=== PATIENT | female | born 1945 | race Caucasian/White ===

== ENCOUNTER → 2017-09-27 | Outpatient (CLI) | payer MEDICARE ==
[2017-09-27 14:07] LABS: ABSOLUTE LYMPHOCYTES 1.7 thou/uL (0.8-5.3); ABSOLUTE MONOCYTES 0.2 thou/uL (0.0-1.2); ABSOLUTE NEUTROPHILS 3.5 thou/uL (1.6-8.1); BASOPHILS 0.3 %; EOSINOPHILS 0.9 %; HEMATOCRIT 33.2 % (37.0-47.0); HEMOGLOBIN 11.3 gm/dL (12.0-15.0); LYMPHOCYTES 31.2 %; MCV 91.1 fL (80.0-100.0); MPV 7.4 fl. (7.2-11.1); NUCLEATED RBCS 0 /100WBC; PLATELET COUNT* 161 thou/uL (150-400); POLYS 63.6 %; RBC 3.64 mil/uL (4.20-5.00); RDW-CV 18.6 % (10.5-14.5); WBC 5.5 thou/uL (4.0-11.0)
[2017-09-27 14:14] LABS: CALCIUM 9.3 mg/dL (8.5-10.1); CREATININE 0.7 mg/dL (0.6-1.3); POTASSIUM 3.8 mmol/L (3.5-5.1)
== END ==
LOC: M.LAB 13:49
PROVIDERS: Radiology Radiation Oncology
DX: E03.9 Hypothyroidism, unspecified (principal)

== ENCOUNTER → 2017-09-27 | Outpatient (CLI) | payer MEDICARE, OTHER ==
--- NOTE | 2017-10-10 15:00 | ONC ---
[place] [address] RADIATION ONCOLOGY NOTE Name: DIRK CASSIDY Room: [facility].#: [id number] Admission: 09/27/17 Attend Phys: Anderson Avilez MD Discharge: Date of : 45 Report #: [id number] THIS REPORT FOR: //name// CC: Dr. Raymon Hernandez MD DATE OF PROCEDURE: 09/27/2017 REFERRING PHYSICIANS: Dr. Guzman, the rounding physician at the [facility] in [place]; Raymon Nicole MD; Kennedy Devine, and Jb Hernandez MD. [facility] phone is [phone]. 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 The patient's radiation treatments were completed on 05/25/2016. PROCEDURE: Nasopharyngolaryngoscopy. FINDINGS: On nasopharyngolaryngoscopy, after administration of a small amount of 2% viscous lidocaine orally and 2% viscous lidocaine to the left nostril using a cotton swab, there were no visible lesions involving the nasopharynx. There were no visible lesions in the posterior oropharynx and no suspicious lesions involving the epiglottis or the true vocal cords. The patient has mild supraglottic edema. The true vocal cords were normally mobile. There were no suspicious visible lesions involving the true vocal cords. She still has a tracheostomy tube in place. There is no evidence of head and neck cancer. Thank you for allowing me to participate in the care of this patient. <ELECTRONICALLY SIGNED> By: Anderson Avilez MD 10/10/17 1500 1717 [id number] Avilez MD /nt
--- NOTE | 2017-10-10 15:35 | ONC ---
[place] [address] RADIATION ONCOLOGY NOTE Name: DIRK CASSIDY Room: [facility]#: [id number] Admission: 09/27/17 Attend Phys: Anderson Avilez MD Discharge: Date of : 45 Report #: [id number] THIS REPORT FOR: //name// CC: Dr. Raymon Guzman DATE OF SERVICE: 09/27/2017 REFERRING PHYSICIANS: Dr. Guzman who is the physician for the patient at [facility]; Raymon Nicole MD; Jb Hernandez MD and Kennedy Devine MD [facility] phone is [phone]. PRIMARY SITE AND HISTOPATHOLOGY: The patient received definitive radiation therapy for a stage I, T1 N0 M0 epiglottic cancer. The patient's radiation treatments were completed on 05/25/2016. INTERVAL NOTE: The patient now resides at the [facility] in [place]. She said she had a swallow study and after that she has been able to eat soft foods. She takes about 4-1/2 cans of supplements through her gastric tube per day. She eats food such as pudding and fried eggs by mouth. MEDICATIONS: She still takes gabapentin, oxycodone twice a day and baclofen. SOCIAL HISTORY: The patient is . Cigarettes: She smoked half a pack a day since about 1984. She has been trying to quit, but she is now still about at a half pack per day. REVIEW OF SYSTEMS: RESPIRATORY: The patient's breathing is stable. GASTROINTESTINAL: She is taking some soft foods by mouth and then she is also taking 4-1/2 cans of supplements through her gastric tube. PHYSICAL EXAMINATION: VITAL SIGNS: The patient weighed 127.8 pounds on 09/27/2017 and 133 pounds on 03/10/2017. On 09/27/2017 blood pressure was 110/66, pulse 83, respirations 24, oxygen saturation is 95% on room air. LYMPH NODES: She had no palpable cervical or supraclavicular lymphadenopathy. HEAD, EYES, EARS, NOSE AND THROAT: Mouth had no suspicious visible lesions or suspicious palpable lesions. On nasopharyngolaryngoscopy, after administration of a small amount of 2% viscous lidocaine orally and 2% viscous lidocaine to the left nostril, using a cotton swab, there [place] [address] RADIATION ONCOLOGY NOTE Name: DIRK CASSIDY Room: [facility]#: [id number] Admission: 09/27/17 Attend Phys: Anderson Avilez MD Discharge: Date of : 45 Report #: [id number] nasopharynx and no visible lesions involving the oropharynx. She has some mild supraglottic edema. The epiglottis had no visible lesions. The true vocal cords had no visible lesions. She has a tracheostomy tube in place. HEART: Had a regular rate and rhythm without murmur. LUNGS: were clear to auscultation. ABDOMEN: Soft with positive bowel sounds. Gastric tube was in place. LABORATORY DATA: From 09/27/2017, white blood cell count 5.5, hemoglobin 11.3 and platelets were 161,000. Sodium 137, potassium 3.8, BUN 22 and creatinine 0.7. TSH was 2.424. ASSESSMENT AND PLAN: 1. History of epiglottic cancer- There is no evidence of epiglottic cancer at this time. Lab work and a neck CT will be ordered in about 3 months and the patient will be asked to schedule a follow up appointment to see me afterwards. 2. Weight loss- The dietitian will be consulted to assess how much calories she needed to keep her weight stable. 3. Cigarette smoking- She was again urged to quit smoking. 4. Dental care- She was given a prescription for 1.1% dental gel to use for dental care. Thank you for allowing me to participate in the care of this patient. <ELECTRONICALLY SIGNED> By: Anderson Avilez MD 10/10/17 1535 1723 [id number] Avilez MD /nt
== END | disposition home or self-care (01) ==
LOC: M.RTH 09-13 02:11
DX: Z85.818 Personal history of malignant neoplasm of other sites of lip, oral cavity, and pharynx (principal); F17.210 Nicotine dependence, cigarettes, uncomplicated